=== PATIENT | male | born 1985 | race Caucasian/White ===

== ENCOUNTER 2023-01-16 15:28 | Emergency (ER) | payer OTHER ==
[~2023-01-16] VITALS: Ht 193 cm; Wt 118.2 kg
[2023-01-16] MEDS ORDERED: LIDOCAINE 5% TRANSDERMAL PATCH TD ONE (17:15)
[2023-01-16] MEDS ORDERED: KETOROLAC TROMETHAMINE 30 MG/ML VIAL IM ONE (17:15)
[2023-01-16] MEDS ORDERED: HYDROCODONE/ACETAMINOPHEN 5-325 MG TABLET PO ONE (17:30)
[2023-01-16] MEDS ORDERED: LIDO700A15 TP (18:52)
[2023-01-16] MEDS ORDERED: CYCL-448 PO (18:52)
[2023-01-16] MEDS ORDERED: TRAM-559 PO (18:57)
[2023-01-16 19:06] VITALS: BP 135/81
== END 2023-01-16 19:08 | disposition home or self-care (01) ==
LOC: EMS 15:38
DX: G89.29 Other chronic pain (principal); M54.50 Low back pain, unspecified
CPT/HCPCS: 99283; 72100; 96372; J1885